=== PATIENT | male | born 1985 | race Caucasian/White ===

== ENCOUNTER 2024-08-28 19:35 | Emergency (ER) | payer MEDICAID ==
[~2024-08-28] VITALS: Ht 157.5 cm; Wt 67.0 kg
[2024-08-28 19:44] VITALS: BP 144/99; PULSE 108; RESP 16; TEMP 98.5; O2SAT 98
== END 2024-08-28 20:45 | disposition left against medical advice (07) ==
LOC: ER 19:35
DX: J02.9 Acute pharyngitis, unspecified (principal); Z53.21 Procedure and treatment not carried out due to patient leaving prior to being seen by health care provider